=== PATIENT | female | born 1975 | race African-American/Black ===

== ENCOUNTER 2016-02-25 01:52 | Emergency (ER) | payer OTHER ==
[~2016-02-25] VITALS: Ht 172.7 cm; Wt 81.7 kg
[~2016-02-25 01:52] MED LIST: PROTONIX40 MG PO; RESTASIS1 EACH OP; TRIAMCINOLONE A15 G1 TP
[2016-02-25 02:14] LABS: URINE BILIRUBIN NEGATIVE (Negative); URINE BLOOD TRACE (Negative); URINE COLOR YELLOW; URINE GLUCOSE-RANDOM* NEGATIVE (Negative); URINE KETONES NEGATIVE (Negative); URINE LEUKOCYTES-REFLEX 2+ (Negative); URINE PROTEIN (DIPSTICK) NEGATIVE (Negative); URINE SPECIFIC GRAVITY 1.025 (1.003-1.035); URINE UROBILINOGEN 0.2 E.U./dl (0.2-1.0)
[2016-02-25 02:38] LABS: CALCIUM 8.6 mg/dL (8.5-10.1); POTASSIUM 3.8 mmol/L (3.5-5.1)
[2016-02-25 02:42] LABS: ABSOLUTE NEUTROPHILS 5.7 thou/uL (1.4-8.2); BASOPHILS 0.7 % (0.0-2.0); EOSINOPHILS 2.1 % (0.0-3.0); HEMATOCRIT 36.3 % (37.0-47.0); HEMOGLOBIN 11.5 gm/dL (12.0-15.0); LYMPHOCYTES 33.4 % (24.0-44.0); MCH 23.7 pg (26.0-34.0); MCHC 31.8 % (28.0-37.0); MCV 74.5 fL (80.0-100.0); MONOCYTES 6.9 % (1.0-8.0); PLATELET COUNT 297 thou/uL (150-400); POLYS 56.9 % (36.0-66.0); RBC 4.87 mil/uL (4.20-5.00); RDW 16.8 % (10.5-14.5); WBC 10.1 thou/uL (4.0-11.0)
[2016-02-25 02:43] LABS: CASTS None Seen /LPF (None Seen); SQUAMOUS >10 Many /LPF (0-3)
[2016-02-25 02:45] LABS: URINE RBC 0-2 Rare /HPF (0-2); URINE WBC-REFLEX 6-15 Few /HPF (0-5)
[2016-02-25 02:46] LABS: CRYSTALS None Seen /LPF (None Seen)
[2016-02-25 02:46] LABS: ALBUMIN 3.5 g/dL (3.4-5.0); TOTAL BILIRUBIN 0.2 mg/dL (<0.1-1.0); TOTAL PROTEIN 8.8 g/dL (6.4-8.2)
[2016-02-25 02:57] LABS: MANUAL DIFF NO
[2016-02-25] MEDS ORDERED: NORCO 5-325 TA1 EACH PO (06:48)
[2016-02-25] MEDS ORDERED: BACTRIM DS TAB1 EACH PO (06:49)
[2016-02-25] MEDS ORDERED: AMOXICILLIN875 MG PO (06:49)
[2016-02-25 07:00] VITALS: BP 126/61
== END 2016-02-25 07:01 | disposition home or self-care (01) ==
LOC: ER 01:52
PROVIDERS: Emergency Medicine
DX: R10.11 Right upper quadrant pain (principal)

== ENCOUNTER 2021-02-07 09:40 | Emergency (ER) | payer OTHER ==
[~2021-02-07] VITALS: Ht 167.6 cm; Wt 102.5 kg
[~2021-02-07 09:40] MED LIST changes: +AMOXICILLIN875 MG PO; +BACTRIM DS TAB1 EACH PO; +NORCO 5-325 TA1 EACH PO
[2021-02-07] MEDS ORDERED: AZITHROMYCIN 2250 MG PO (10:42)
[2021-02-07] MEDS ORDERED: TESSALON PERLE100 MG PO (10:42)
== END 2021-02-07 10:40 | disposition home or self-care (01) ==
LOC: ER 09:40
PROVIDERS: Emergency Medicine
DX: U07.1 COVID-19 (principal); J12.82 Pneumonia due to coronavirus disease 2019; R51.9 Headache, unspecified; Z79.899 Other long term (current) drug therapy